=== PATIENT | female | born 1975 | race Caucasian/White ===

== ENCOUNTER 2025-01-16 17:59 | Emergency (ER) | payer BC ==
[~2025-01-16] VITALS: Ht 165.1 cm; Wt 89.5 kg
[2025-01-16] MEDS ORDERED: LEVOTHYROXINE25 MCG PO (18:11)
[2025-01-16 19:16] VITALS: BP 147/97
== END 2025-01-16 19:18 | disposition home or self-care (01) ==
LOC: ED 17:59
PROC: 3E10X8Z Irrigation of Skin and Mucous Membranes using Irrigating Substance (ICD-10-PCS; principal; 2025-01-16)
DX: S61.215A Laceration without foreign body of left ring finger without damage to nail, initial encounter (principal); W26.0XXA Contact with knife, initial encounter; Z88.2 Allergy status to sulfonamides
CPT/HCPCS: 99282